=== PATIENT | female | born 1990 | race Caucasian/White ===

== ENCOUNTER 2023-05-19 08:55 | Inpatient (IN) ==
[2023-05-19] MEDS ORDERED: LACTATED RINGER'S 1,000 ML IV PRN (10:15)
[2023-05-19] MEDS ORDERED: LIDOCAINE 1% LOCAL 20 ML VIAL INFIL PRN (10:15)
[2023-05-19] MEDS ORDERED: PENICILLIN G POTASSIUM 6 MU in DEXTROSE 5% 250 ML IV STA (10:15)
[2023-05-19] MEDS ORDERED: OXYTOCIN 30 UNITS/NSS 30 UNITS/500 ML BAG IV PRN ×2 (10:15→14:47)
[2023-05-19] MEDS ORDERED: BETAMETH SOD PHOS/ACETATE IA 6 MG/ML IM STA (10:15)
[2023-05-19] MEDS ORDERED: ePHEDrine sulfate 50 MG/ML AMP ONE (10:20)
[2023-05-19] MEDS ORDERED: fentaNYL citrate PF 100 MCG/2 ML VIAL ONE (10:20)
[2023-05-19] MEDS ORDERED: fentANYL 2 MCG/ML BUPIVacaine 0.125%-NSS 100ML BAG ONE (10:21)
[2023-05-19] MEDS ORDERED: LIDOCAINE 2%/EPINEPHRINE 1:200,000 20 ML PF ONE (10:21)
[2023-05-19] MEDS ORDERED: SODIUM CHLORIDE 0.9% PF INJ 10 ML VIAL ONE (10:21)
[2023-05-19] MEDS ORDERED: BUPIVACAINE 0.25% PF 30 ML VIAL ONE (10:21)
--- NOTE | 2023-05-19 10:30 | History & Physical Report ---
Date of Service May 19, 2023 Assessment & Plan (1) 35 weeks gestation of : (2) labor in third trimester: Plan admit, iv, labs. no evidence of rom, unclear on exam. will start pcn for gbs unknown. plan steroids. fhts categ 1. pt would like to consider epidural for pain. History of Present Illness Chief Complaint: leaking fluid. Primary Care Provider: Fay Bhatia MD 32yo at 35 6/7wks dwayne presents to L&D with cc of leaking fluid this am and having pain with ctx. She called fire control officer this am, at first had a gush and then ongoing leaking and advised to come in. On arrival was wearing pad and it was dry and was noting more mucus dc, like her mucus plug and not water running down her leg. +FM. PNC c/b 1. asthma 2. hypothyroid 3. IBS 4. Rh neg PNL rh neg, ri, gbs unknown OBH: g1 GYNH: nl paps no stds Allergies Allergy/AdvReac Type Severity Reaction Status Date / Time No Known Allergies Allergy Verified 05/19/23 09:16 Home Medications Medication Instructions Recorded Confirmed Type cholecalciferol (vitamin D3) 2,000 PO 12/05/21 04/26/23 History montelukast 10 mg tablet 10 mg PO DAILY 12/05/21 05/19/23 History (Singulair) prenat.vits,charla,vbd-[id number]-[id number] 1 tab PO DAILY 11/02/22 05/19/23 History levothyroxine 88 mcg tablet 88 mcg PO .COMPLEX #35 tabs 04/13/23 05/19/23 Rx Patient History Medical History (Updated 05/19/23 @ 10:27 by Beatriz Crenshaw MD, FACOG) Asthma UTI (urinary tract infection) Seasonal allergies History of chicken pox Gaudencio thyroiditis, fibrous variant Surgical History History of gynecologic surgery hymenectomy H/O wisdom tooth extraction Family History Grandmother (Maternal) Breast cancer Aunt Ovarian cancer Grandmother (Paternal) Stroke Denies family history of Prostate cancer Colorectal cancer Social History (Updated 11/02/22 @ 13:12 by Fay Ramos Smoking Status: Never smoker Do You Dip or Chew Tobacco: No; Hx Alcohol Use: No Hx Substance Use: No Preferred Language: Chinese Communication Ability: Effective 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 Beliefs That Will Affect Care: None marital status: marital status details: Clyde Acosta (35) [phone] Current Living Situation: Spouse Current Living Situation Comment: lives with spouse, dogs current occupational status: employed current occupation: [employer] Other Information That Helps Us Care for You: No Feels Safe at Home: Yes Safety Concerns: Feels Safe At This Time Assistive Devices: None Review of Systems as per Subjective / HPI Physical Exam Constitutional: WD/WN, vitals as above Respiratory: normal respiratory effort, lungs clear to auscultation Cardiovascular: Rate/Rhythm: regular rate and regular rhythm Gastrointestinal (Abdomen): soft gravid nt Musculoskeletal: no edema nontender calves Neurologic: grossly normal Psychiatric: A+Ox3, euthymic affect Genitourinary: Manual OB Exam: + cervical dilation 5 cm, + cervical effacement 80% and + station -1 OB Exam Monitor Tracing: + external FHT monitor used, + external uterine monitor used (? q 2min with irrit), + category I and + normal FHT variability SSE no pooling, neg nitrazine, neg ferning. Results & Data Vital Signs (Past 12 Hours) Vital Signs Temp Pulse Resp BP 05/19/23 09:27 93 H 119/77 05/19/23 09:08 98.8 F 93 H 20 127/86 Coding Level of Care Code None Diagnoses 35 weeks gestation of Z3A.35 labor in third trimester O60.03
[2023-05-19 10:53] LABS: Basophils # (auto) 0.05 K/uL (0.00-0.20); Basophils % (auto) 0.3 %; Eosinophils # (auto) 0.04 K/uL (0.00-0.50); Eosinophils % (auto) 0.2 %; Hematocrit (blood only) 37.1 % (37.0-47.0); Hemoglobin 12.7 g/dl (12.0-16.0); Immature Granulocytes # (auto) 0.17 K/uL (0.01-0.20); Immature Granulocytes % (auto) 1.1 %; Lymphocytes # (auto) 3.39 K/uL (1.20-3.40); Mean Corpuscular Hemoglobin 30.8 pg (25.0-34.0); Mean Corpuscular Hgb Conc 34.2 g/dL (32.0-36.0); Mean Corpuscular Volume 89.8 fL (80.0-100.0); Mean Platelet Volume 9.5 fL (9.4-12.4); Monocytes # (auto) 0.84 K/uL (0.11-0.59); Monocytes % (auto) 5.2 %; Neutrophils # (auto) 11.62 K/uL (1.40-6.50); Neutrophils % (auto) 72.2 %; Platelet Count 379 K/uL (130-400); RDW Coefficient of Variation 13.6 % (11.5-14.5); RDW Standard Deviation 44.7 fL (36.4-46.3); Red Blood Count 4.13 M/uL (4.20-5.40); White Blood Count 16.11 K/ul (4.8-10.8)
--- NOTE | 2023-05-19 11:00 | Anesthesiology Consultation ---
Date of Service May 19, 2023 Assessment & Plan (1) Encounter for pre-operative examination: Chart Review Chart Review: Acceptable Risk for Labor Epidural History Height/Weight Height: 5 ft 4 in Weight: 80.286 kg Allergies Allergy/AdvReac Type Severity Reaction Status Date / Time No Known Allergies Allergy Verified 05/19/23 09:16 Medications Home Medications Medication Instructions Recorded Confirmed Last Taken cholecalciferol (vitamin D3) 2,000 PO 12/05/21 04/26/23 05/18/23 12:00 montelukast 10 mg tablet 10 mg PO DAILY 12/05/21 05/19/23 05/18/23 21:00 (Singulair) prenat.vits,charla,fwz-dnym-cmbfy 1 tab PO DAILY 11/02/22 05/19/23 05/18/23 12:00 levothyroxine 88 mcg tablet 88 mcg PO .COMPLEX #35 tabs 04/13/23 05/19/23 05/19/23 06:00 Active Medications Generic Name Dose Route Start Last Admin Trade Name Freq PRN Reason Stop Dose Admin Lactated Ringer's 1,000 mls @ 125 mls/hr 05/19/23 10:15 05/19/23 10:38 Lr IV 05/21/23 10:14 999 mls/hr .Q8H PRN Administration L&D Protocol Protocol Past Medical History Medical History Asthma UTI (urinary tract infection) Seasonal allergies History of chicken pox Gaudencio thyroiditis, fibrous variant spouse covid positive - she is untested Past Family History Family History Grandmother (Maternal) Breast cancer Aunt Ovarian cancer Grandmother (Paternal) Stroke Denies family history of Prostate cancer Colorectal cancer Past Surgical History Surgical History History of gynecologic surgery hymenectomy H/O wisdom tooth extraction Social History Smoking Status: Never smoker Do You Dip or Chew Tobacco: No Hx Alcohol Use: No Hx Substance Use: No Physical Exam Vital Signs Last Vital Signs Temp 36.6 C 05/19/23 10:50 Pulse 79 05/19/23 10:55 Resp 20 05/19/23 10:50 BP 111/63 05/19/23 10:50 Pulse Ox 100 05/19/23 10:55 Testing Laboratory Results 05/19/23 10:39
[2023-05-19] MEDS ORDERED: fentANYL 2 MCG/ML BUPIVacaine 0.125%-NSS 100ML BAG EPI PRN (11:30)
[2023-05-19] MEDS ORDERED: fentaNYL citrate PF 100 MCG/2 ML VIAL EPI STA (11:30)
[2023-05-19] MEDS ORDERED: ePHEDrine sulfate 50 MG/ML AMP IV PRN (11:30)
[2023-05-19] MEDS ORDERED: NALOXONE HCL 0.4 MG/1 ML VIAL/CARP IV PRN (11:30)
[2023-05-19] MEDS ORDERED: ROPIVACAINE 0.5% PF 5 MG/ML 20 ML VIAL EPI PRN (11:30)
[2023-05-19] MEDS ORDERED: LIDOCAINE 2% MPF LOCAL 5 ML VIAL EPI PRN (11:30)
[2023-05-19] MEDS ORDERED: LIDOCAINE 2%/EPINEPHRINE 1:200,000 20 ML PF EPI STA (11:30)
[2023-05-19] MEDS ORDERED: BUPIVACAINE 0.25% PF 30 ML VIAL EPI PRN (11:30)
[2023-05-19] MEDS ORDERED: SODIUM CHLORIDE 0.9% PF INJ 10 ML VIAL EPI STA (11:30)
[2023-05-19] MEDS ORDERED: NALOXONE HCL 1 MG in SODIUM CHLORIDE 0.9% 1,000 ML IV PRN (11:30)
[2023-05-19] MEDS ORDERED: fentaNYL citrate PF 100 MCG/2 ML VIAL EPI PRN (11:30)
[2023-05-19] MEDS ORDERED: SODIUM CHLORIDE 0.9% PF INJ 10 ML VIAL EPI PRN (11:30)
[2023-05-19] MEDS ORDERED: BUPIVACAINE 0.25% PF 30 ML VIAL EPI STA (11:30)
[2023-05-19 13:04] LABS: Appearance Urine Clear (Clear); Bilirubin Urine Negative (Negative); Blood Urine Negative (Negative); Color Urine Yellow; Glucose Urine UA Negative (Negative); Ketones Urine Negative (Negative); Leukocyte Esterase Urine Negative (Negative); Nitrite Urine Negative (Negative); Protein Urine Negative (Negative); Specific Gravity Urine 1.024 (1.000-1.030); Urobilinogen Urine Negative (Negative)
--- NOTE | 2023-05-19 13:13 | Labor Progress Brief Note ---
Date of Service May 19, 2023 Subjective pt feeling pressure Assessment & Plan (1) 35 weeks gestation of : (2) labor in third trimester: Plan ready to push. will obtain covid swab. send rna probe. just completed straight cath for urine testing. fhts categ 1. begin 2nd stage soon. Admission and Anticipated Discharge Date Admission Date: May 19, 2023 Physical Exam Constitutional: WD/WN, vitals as above Genitourinary: Manual OB Exam: + cervical dilation 10 cm, + cervical effacement 100% and + station + 2 OB Exam Monitor Tracing: + external FHT monitor used, + external uterine monitor used (q2-3), + category I and + normal FHT variability Results & Data Vital Signs (Past 12 Hours) Vital Signs Temp Pulse Resp BP Pulse Ox 05/19/23 13:00 97 H 100 05/19/23 12:59 93 H 113/65 05/19/23 12:55 93 H 99 05/19/23 12:50 101 H 100 05/19/23 12:45 100 H 99 05/19/23 12:42 93 H 117/75 05/19/23 12:40 96 H 99 05/19/23 12:35 102 H 99 05/19/23 12:30 91 H 18 100 05/19/23 12:28 94 H 125/80 05/19/23 12:25 91 H 100 05/19/23 12:20 87 100 05/19/23 12:15 91 H 100 05/19/23 12:12 89 05/19/23 12:12 112/71 05/19/23 12:12 81 110/65 05/19/23 12:10 87 100 05/19/23 12:05 100 05/19/23 12:05 83 05/19/23 12:05 93 H 111/67 05/19/23 12:00 83 20 110/62 100 05/19/23 11:56 75 107/62 05/19/23 11:55 84 100 05/19/23 11:51 79 105/57 L 05/19/23 11:50 82 100 05/19/23 11:46 82 105/65 05/19/23 11:45 84 100 05/19/23 11:41 90 110/67 05/19/23 11:40 91 H 100 11/15/23 11:35 100 05/19/23 11:35 90 05/19/23 11:35 104 H 105/68 05/19/23 11:33 85 104/58 L 05/19/23 11:31 83 105/58 L 05/19/23 11:30 84 100 05/19/23 11:29 87 111/64 05/19/23 11:27 79 107/62 05/19/23 11:25 20 05/19/23 11:25 20 05/19/23 11:25 100 05/19/23 11:25 88 05/19/23 11:25 78 108/62 05/19/23 11:23 80 107/59 L 05/19/23 11:21 78 108/59 L 05/19/23 11:20 78 98 05/19/23 11:19 71 110/58 L 05/19/23 11:15 75 100 05/19/23 11:10 88 100 05/19/23 11:05 83 100 05/19/23 11:03 90 91 05/19/23 11:00 78 100 05/19/23 10:55 79 100 05/19/23 10:50 20 05/19/23 10:50 97.9 F 72 20 111/63 97 05/19/23 09:27 93 H 119/77 05/19/23 09:08 98.8 F 93 H 20 127/86 Coding Level of Care Code None Diagnoses 35 weeks gestation of Z3A.35 labor in third trimester O60.03
[2023-05-19] MEDS ORDERED: PENICILLIN G POTASSIUM 3 MU in DEXTROSE 5% 100 ML IV PRN (13:15)
--- NOTE | 2023-05-19 14:30 | Delivery Summary ---
Vaginal Delivery Summary Date of Service May 19, 2023 Vaginal Delivery Summary and 2nd Degree LAC The patient dilated to complete and pushed to deliver a viable male infant Apgars 8 and 9 via over 2nd degree perineal laceration. Nuchal x 2 reduced. Mouth and nose bulb suctioned at perineum. Shoulders and body delivered with ease. was vigorous and crying at . Cord clamped at 30 seconds of life and to maternal abdomen where the cord was then doubly clamped and cut. Placenta delivered spontaneously and intact, three-vessel cord. Hemostasis achieved with dilute pitocin and uterine massage. Laceration repaired in usual fashion with 3-0 vicryl. Cervix and sulci intact. EBL 300 cc. Mother and baby stable in recovery. [facility] Vaginal Delivery Charge Delivery Type Details: and 2nd Degree LAC
[2023-05-19] MEDS ORDERED: bisacodyL 10 MG SUPP PR PRN (14:47)
[2023-05-19] MEDS ORDERED: DIPHTHERIA/TETANUS/PERTUSSIS Vaccine (Tdap, Age 7+yrs) 0.5mL SYR/VL IM ONE (14:47)
[2023-05-19] MEDS ORDERED: BENZOCAINE 20% SPRY 85 APPLN/85 GM CAN EXT PRN (14:47)
[2023-05-19] MEDS ORDERED: oxyCODONE/ACETAMINOPHEN 5mg/325mg TAB PO PRN (14:47)
[2023-05-19] MEDS ORDERED: HYDROCORTISONE ACETATE 25 MG SUPP PR PRN (14:47)
--- NOTE | 2023-05-19 15:04 | Anesthesia Procedure Note ---
Date of Service May 19, 2023 Anesthesia Post Epidural Note Vital Signs Vital Signs: Temp Pulse Resp BP Pulse Ox 37.5 C 112 H 18 112/68 97 05/19/23 13:25 05/19/23 14:52 05/19/23 14:52 05/19/23 14:52 05/19/23 14:20 Pain Intensity Bilateral Abdomen: Pain Intensity: 8 Notes Mental Status: alert / awake / arousable and participated in evaluation Nausea / Vomiting: adequately controlled Pain: adequately controlled Airway Patency, RR, SpO2: stable & adequate BP & HR: stable & adequate Hydration State: stable & adequate Neuraxial Anesthesia: was administered and sensory block is resolving Anesthetic Complications: no major complications apparent Epidural: Removed without complications and With tip intact
[2023-05-19] MEDS: OXYTOCIN 20 UNITS/LR 1,002 ML IV SCH (15:44)
[2023-05-19] MEDS: IBUPROFEN 600 MG TAB PO PRN ×2 (15:46→20:14)
[2023-05-19] MEDS: DOCUSATE SODIUM 100 MG CAP PO SCH (20:14)
[2023-05-20] MEDS: IBUPROFEN 600 MG TAB PO PRN ×5 (00:08→18:40)
[2023-05-20] MEDS: LEVOTHYROXINE SODIUM 88 MCG TABLET PO SCH (06:00)
[2023-05-20] MEDS ORDERED: Nursing to Pharmacy Communication SCH (08:15)
--- NOTE | 2023-05-20 08:41 | Obstetrical Progress Note ---
Date of Service May 20, 2023 Assessment & Plan (1) care and examination: Plan doing well , routine care. rh neg--> will need rhogam. reviewed available results. Subjective Ambulation: ambulating normally Voiding: no voiding problems Diet Tolerance:: regular diet Lochia:: Small Feeding Type:: breast feeding asks about her wbc on admission, was a left shift, urine pending. rna probe and gbs pending. otherwise no concerns Constitutional: + as per Subjective / HPI Physical Exam Constitutional WD/WN, vitals as above Respiratory normal respiratory effort, lungs clear to auscultation Cardiovascular Rate/Rhythm: regular rate and regular rhythm Gastrointestinal (Abdomen) Inspection/Auscultation: abdomen normal to inspection Percussion/Palpation: abdomen soft Fundus firm 2cm down Musculoskeletal nt calves no edema Neurologic grossly normal Psychiatric A+Ox3, euthymic affect Results & Data Vital Signs (Past 12 Hours) Vital Signs Temp Pulse Resp BP Pulse Ox O2 Del Method 05/20/23 04:10 97.7 F 97 H 16 120/74 98 Room Air 05/20/23 00:05 98.1 F 93 H 16 114/64 97 Room Air
[2023-05-20] MEDS: DOCUSATE SODIUM 100 MG CAP PO SCH ×2 (08:45→21:04)
[2023-05-20] MEDS: PRENATAL VITAMIN 1 TAB PO SCH (08:45)
[2023-05-20] MEDS ORDERED: MONTELUKAST SODIUM 10 MG TABLET PO SCH (09:00)
[2023-05-20 11:41] LABS: GC (Neis gonorrhoeae) RNA Not Detected (NotDetected)
[2023-05-20] MEDS: ACETAMINOPHEN 325 MG TAB PO PRN (17:25)
[2023-05-20] MEDS: MONTELUKAST SODIUM 10 MG TABLET PO SCH (21:04)
[2023-05-21] MEDS: IBUPROFEN 600 MG TAB PO PRN ×4 (00:35→19:57)
[2023-05-21] MEDS: ACETAMINOPHEN 325 MG TAB PO PRN ×2 (02:51→16:54)
[2023-05-21] MEDS: LEVOTHYROXINE SODIUM 88 MCG TABLET PO SCH (06:26)
--- NOTE | 2023-05-21 07:56 | Obstetrical Progress Note ---
Date of Service May 21, 2023 Assessment & Plan (1) care following vaginal delivery: Plan Doing well encourage ambulation pain control Dc vs. Nesting today Admission and Anticipated Discharge Date Admission Date: May 19, 2023 Supervising Physician Co-Signing Physician Notes Patient seen with resident and agree with the above findings and plan. Stable for discharge. Subjective 32 yo post day 2 s/p Ambulation: ambulating normally Voiding: no voiding problems Passing Gas:: Yes Diet Tolerance:: regular diet Lochia:: Small Feeding Type:: breast feeding Current Pain Level: Mild Resting comfortably this AM in NAD. Denies HERNANDEZ, CP, SOB, N/V/D, LE pain/swelling. Review of Systems Review of Systems: reviewed, per HPI Physical Exam Physical Exam: General: patient resting comfortably, NAD, non-toxic in appearance, answers questions appropriately. Skin: warm, dry, intact HEENT: NC/AT, anicteric sclera, conjunctiva without injection, moist mucus membranes. Heart: +S1/S2, regular, no m/r/g Lungs: equal air entry bilaterally, no rales/rhonchi/wheezes Abd: +BS, soft, NT/ND, uterine fundus firm at umbilicus Ext: warm, no clubbing/cyanosis or edema, Dino's neg. Neuro: speech intact, no facial droop, moving all extremities on command. Results & Data Vital Signs (Past 12 Hours) Vital Signs Temp Pulse Resp BP Pulse Ox O2 Del Method 05/21/23 00:30 36.9 C 66 18 119/68 98 Room Air 05/20/23 21:10 36.8 C 81 18 117/79 99 Room Air Resident Activity Tracking Resident Involvement: Resident Care Provided Care Provided: Adult Hospital Medicine
[2023-05-21] MEDS: DOCUSATE SODIUM 100 MG CAP PO SCH ×2 (09:29→19:57)
[2023-05-21] MEDS: PRENATAL VITAMIN 1 TAB PO SCH (09:29)
[2023-05-21] MEDS: OXYTOCIN 20 UNITS/LR 1,002 ML IV SCH ×2 (19:44→19:45)
[2023-05-21] MEDS: MONTELUKAST SODIUM 10 MG TABLET PO SCH (21:25)
[2023-05-22] MEDS ORDERED: LEVOTHYROXINE SODIUM 88 MCG TABLET PO SCH (06:30)
== END 2023-05-21 20:05 | disposition home or self-care (01) | DRG 807 ==
LOC: OPB 08:55 → 4S1 08:56 → 4E1 17:00
DX: O70.1 Second degree perineal laceration during delivery; Z37.0 Single live birth; O60.14X0 Preterm labor third trimester with preterm delivery third trimester, not applicable or unspecified